=== PATIENT | female | born 1945 | race Caucasian/White ===

== ENCOUNTER 2020-04-05 11:34 | Emergency (ER) | payer MEDICARE, OTHER ==
[~2020-04-05] VITALS: Ht 157.5 cm; Wt 63.2 kg
[2020-04-05 11:49] VITALS: BP 185/91
[2020-04-05] MEDS ORDERED: HYDR-4383 PO (12:14)
== END 2020-04-05 12:30 | disposition home or self-care (01) ==
LOC: ER 11:35
DX: N93.9 Abnormal uterine and vaginal bleeding, unspecified (principal); N85.8 Other specified noninflammatory disorders of uterus; R10.9 Unspecified abdominal pain; M54.9 Dorsalgia, unspecified; Z79.899 Other long term (current) drug therapy
CPT/HCPCS: 99283

== ENCOUNTER 2022-01-05 09:05 | Day surgery (SDC) | payer MEDICARE, OTHER ==
[~2022-01-05] VITALS: Ht 157.5 cm; Wt 63.6 kg
[~2022-01-05 09:05] MED LIST: HYDR-4383 PO
[2022-01-05] MEDS ORDERED: fentaNYL/PF 50MCG/1 ML 2ML syringe ONE (09:14)
[2022-01-05] MEDS ORDERED: MIDAZolam 1 MG/ML 5ML VIAL ONE (09:14)
[2022-01-05] MEDS ORDERED: LEVO88TA2 PO (09:29)
[2022-01-05] MEDS ORDERED: EVOL420W2 SUBCUT (09:30)
[2022-01-05] MEDS ORDERED: TELM40TA2 PO (09:30)
[2022-01-05] MEDS ORDERED: PROG100C11 PO (09:31)
[2022-01-05] MEDS ORDERED: ESCI10TA PO (09:32)
[2022-01-05] MEDS ORDERED: AMPH15TA2 PO (09:32)
[2022-01-05] MEDS ORDERED: MULT-1085 PO (09:33)
[2022-01-05] MEDS ORDERED: CHOL400T57 PO (09:34)
[2022-01-05 10:15] VITALS: BP 142/69
[2022-01-05 10:25] VITALS: BP 157/73
[2022-01-05 10:35] VITALS: BP 147/62
[2022-01-05 10:39] VITALS: BP 164/83
[2022-01-05 10:45] VITALS: BP 161/60
== END 2022-01-05 10:55 | disposition home or self-care (01) ==
LOC: GI LAB 09:05
PROVIDERS: ATTEND Internal Medicine Gastroenterology
DX: R19.7 Diarrhea, unspecified (principal); K63.89 Other specified diseases of intestine; K57.30 Diverticulosis of large intestine without perforation or abscess without bleeding; I10 Essential (primary) hypertension; Z90.710 Acquired absence of both cervix and uterus; Z85.42 Personal history of malignant neoplasm of other parts of uterus; Z98.890 Other specified postprocedural states; Z79.899 Other long term (current) drug therapy; Z87.891 Personal history of nicotine dependence
CPT/HCPCS: 45380; 88305; 88313; G0500; J2250; J3010; J7030; Z7512; 99152; A4620

== ENCOUNTER 2022-04-28 08:16 | Day surgery (SDC) | payer MEDICARE, OTHER ==
[2022-04-26 09:55] LABS: BASOPHILS % (AUTO) 0.5 % (0-1); EOSINOPHILS # (AUTO) 0.1 X10'3 (0-0.9); LYMPHOCYTES # (AUTO) 1.7 X10'3 (1.1-4.8); LYMPHOCYTES % (AUTO) 26.1 % (21-51); MEAN CORPUSCULAR HEMOGLOBIN 29.8 PG (27.0-31.0); MEAN CORPUSCULAR HGB CONC 33.6 g/dL (33.0-36.5); MEAN CORPUSCULAR VOLUME 88.6 FL (78-98); MEAN PLATELET VOLUME 7.2 FL (7.4-10.4); MONOCYTES # (AUTO) 0.6 X10'3 (0-0.9); MONOCYTES % (AUTO) 9.5 % (2-12); NEUTROPHILS % (AUTO) 61.9 % (42-75); PRE OP HEMATOCRIT 38.9 % (35.0-45.0); PRE OP HEMOGLOBIN 13.1 g/dL (12.0-16.0); PRE OP PLATELET COUNT 264 X10'3 (140-440); RED BLOOD COUNT 4.39 X10'6 (4.20-5.60); RED CELL DISTRIBUTION WIDTH 14.4 % (11.5-14.5)
[2022-04-26 09:55] LABS: CLARITY,URINE CLEAR (Clear); COLOR,URINE YELLOW (Yellow); GLUCOSE, URINE NEGATIVE (Neg); KETONES,URINE NEGATIVE (Neg); LEUKOCYTE ESTERASE ,URINE NEGATIVE (Neg); NITRITES, URINE NEGATIVE (Neg); OCCULT BLOOD,URINE TRACE-INTACT (Neg); PROTEIN,URINE NEGATIVE (Neg); UROBILINOGEN,URINE 0.2 E.U/dL (0.2-1.0)
[2022-04-26 10:07] LABS: UA COLLECTION TYPE CLN CATCH MIDSTREAM
[2022-04-26 10:08] LABS: BACTERIA,URINE FEW /HPF (Neg); RBC,URINE 0-2 /HPF (0-2); SQUAMOUS EPITHELIAL CELL,UR FEW /LPF (FEW); WBC,URINE 0-4 /HPF (0-4)
[2022-04-26 10:35] LABS: ALBUMIN 3.3 G/DL (3.4-5.0); ALBUMIN/GLOBULIN RATIO 0.9 (1.1-1.5); ALKALINE PHOSPHATASE 57 IU/L (46-116); BLOOD UREA NITROGEN 21 MG/DL (7-18); BUN/CREATININE RATIO 26.3 (6.6-38.0); CALCIUM 8.5 MG/DL (8.5-10.1); CHLORIDE 104 MMOL/L (99-107); PRE OP ALT 20 U/L (30-65); PRE OP ANION GAP 4 (8-16); PRE OP AST 38 U/L (10-37); PRE OP BILIRUB, TOTAL 0.2 MG/DL (0.0-1.0); PRE OP GLUCOSE 102 MG/DL (70-104); PRE OP POTASSIUM 4.1 MMOL/L (3.4-5.1); PRE OP SODIUM 141 MMOL/L (135-145); TOTAL CARBON DIOXIDE 32.7 MMOL/L (24-32); eGFR 70 ML/MIN
[~2022-04-28] VITALS: Ht 157.5 cm; Wt 65.1 kg
[2022-04-28] VITALS (8 sets, daily range): BP systolic 145–196; BP diastolic 66–123
[~2022-04-28 08:16] MED LIST changes: +EVOL420W2 SUBCUT; -HYDR-4383 PO; +LEVO88TA2 PO; +PROG100C11 PO; +TELM40TA2 PO; +ceFAZolin inj. 2,000 MG in dextrose 5%-water 100 ML IV ONE; +famotidine 20mg tablet PO ONE; +ringers solution, lacted 1,000 ML IV SCH
--- NOTE | 2022-04-28 11:44 | NUR ---
ANES. NOTIFIED OF PT. C/O RIB PAIN NAVI.ON RIGHT SIDE, S/P FALL LAST WEEK. LUNG SOUNDS CLEAR BUT DECREASED IN THE BASES.
[2022-04-28] MEDS ORDERED: fentaNYL/PF 50MCG/1 ML 2ML syringe ONE (12:01)
[2022-04-28] MEDS ORDERED: midazolam 1 mg/ML 2ml injection ONE (12:02)
[2022-04-28] MEDS ORDERED: propofol inj 20 ML IV ONE (12:02)
[2022-04-28] MEDS ORDERED: sevoflurane 250ml liquid IH ONE (12:08)
[2022-04-28] MEDS ORDERED: bacitracin 15gm ointment TP ONE (12:42)
[2022-04-28] MEDS ORDERED: BUPIVAcaine/PF 2.5 mg/ml (0.25%) 30ml vial ONE (12:42)
[2022-04-28] MEDS ORDERED: dexamethasone sod phosphate 4mg/ml inj. ONE (13:24)
[2022-04-28] MEDS ORDERED: ondansetron/PF 4mg/2ml inj ONE (13:25)
--- NOTE | 2022-04-28 13:36 | NUR ---
Received from OR via [facility] , accompanied by Anesthesiologist JASVIR and report given by Anesthesiolgist. PATIENT WITH 20G PIV IN RIGHT UE RUNNING LR AT 100. DENIES PAIN AT THIS TIME. TOES PWD AND SPLINT TO LEFT LE . ELEVATED UPON ARRIVAL FROM OR. + SENSATION AND MOVEMENT WELL. Addendum: 04/28/22 at 1347 by Igor Hill RN, RN Amended: Links added.
[2022-04-28] MEDS ORDERED: morphine 2 MG/ML inj. syringe IV PRN (13:45)
[2022-04-28] MEDS ORDERED: morphine 4 MG/ML inj SYRINge IV PRN (13:45)
[2022-04-28] MEDS ORDERED: proCHLORperazine 10 MG/2 ml inj IV PRN (13:45)
[2022-04-28] MEDS ORDERED: labetalol 20mg/4ml (5mg/ml) syringe IV PRN (13:45)
[2022-04-28] MEDS ORDERED: ondansetron/PF 4mg/2ml inj IV PRN (13:45)
[2022-04-28] MEDS ORDERED: ringers solution, lacted 1,000 ML IV SCH (13:45)
[2022-04-28] MEDS ORDERED: meperidine/PF 25mg/ml syringe IV PRN ×3 (13:45)
[2022-04-28] MEDS ORDERED: HYDROcodone/acetaminophen 10/325mg tab PO ONE (14:15)
--- NOTE | 2022-04-28 14:20 | NUR ---
ALL DISCHARGE CRITERIA HAS BEEN MET. VSS, PAIN AT A TOLERABLE LEVEL, VOIDING AND ABLE TO SAFELY AMBULATE AND TRANSFER SELF. IV TAKEN OUT WITHOUT ANY COMPLICATIONS. ALL DISCHARGE INSTRUCTIONS COVERED WITH PATIENT AND ALL QUESTIONS ANSWERED. PATIENT TAKEN OUT VIA WHEELCHAIR TO PERSONAL VEHICLE WHERE FAMILY/FRIEND DROVE PATIENT HOME. Addendum: 04/28/22 at 1507 by Igor Hill RN, RN Amended: Links added.
== END 2022-04-28 14:36 | disposition home or self-care (01) ==
LOC: PAS 08:16
PROVIDERS: ATTEND Podiatrist Foot & Ankle Surgery
DX: S92.352A Displaced fracture of fifth metatarsal bone, left foot, initial encounter for closed fracture (principal); X58.XXXA Exposure to other specified factors, initial encounter; Y93.89 Activity, other specified; I10 Essential (primary) hypertension; Y92.89 Other specified places as the place of occurrence of the external cause; Y99.8 Other external cause status; Z79.899 Other long term (current) drug therapy; Z98.890 Other specified postprocedural states; Z90.710 Acquired absence of both cervix and uterus; Z96.652 Presence of left artificial knee joint
CPT/HCPCS: 28485; 36415; 73620; 80053; 81001; 82948; 85025; 87811; A6222; C1713; J0690; J1100; J2250; J2270; J2405; J2704; J3010; J3490; J7030; J7060; J7120; Z7506; Z7508; Z7512; 76000; A4618; A6253; A6449; A7000

== ENCOUNTER 2024-10-18 07:11 | Outpatient (CLI) | payer MEDICARE, OTHER ==
[~2024-10-18 07:11] MED LIST changes: -ceFAZolin inj. 2,000 MG in dextrose 5%-water 100 ML IV ONE; -famotidine 20mg tablet PO ONE; -ringers solution, lacted 1,000 ML IV SCH
[2024-10-18] MEDS ORDERED: barium sulfate 340gm for oral suspension 1 BOTTLE SUSP.RECON PO ONE (08:00)
== END 2024-10-18 23:59 | disposition home or self-care (01) ==
LOC: RAD 07:11
PROVIDERS: ATTEND Nurse Practitioner Family
DX: R10.9 Unspecified abdominal pain (principal)
CPT/HCPCS: 74240